=== PATIENT | female | born 2000 | race Caucasian/White ===

== ENCOUNTER 2021-08-28 15:27 | Emergency (ER) | payer OTHER, MEDICAID ==
[~2021-08-28] VITALS: Ht 157.5 cm; Wt 54.0 kg
[2021-08-28 19:16] VITALS: BP 127/76
== END 2021-08-28 19:17 | disposition home or self-care (01) ==
LOC: ER 15:27
DX: S09.8XXA Other specified injuries of head, initial encounter (principal); S00.81XA Abrasion of other part of head, initial encounter; S00.83XA Contusion of other part of head, initial encounter; S02.2XXA Fracture of nasal bones, initial encounter for closed fracture; Y08.89XA Assault by other specified means, initial encounter; Y93.89 Activity, other specified; Y92.9 Unspecified place or not applicable
CPT/HCPCS: 70486; 81025; 99284